=== PATIENT | female | born 1960 | race Caucasian/White ===

== ENCOUNTER 2017-10-24 14:03 | Observation (INO) | payer BC ==
[~2017-10-24] VITALS: Ht 167.6 cm; Wt 81.8 kg
[2017-10-24 14:17] VITALS: BP 183/90; PULSE 100; RESP 22; TEMP 97.7; O2SAT 97
[2017-10-24] MEDS ORDERED: KETOROLAC TROMETHAMINE 60 MG/2 ML (IM) VIAL IM ONE (14:45)
--- NOTE | 2017-10-24 14:48 | PD ---
HPI Chief Complaint: Injury Time Seen by Provider: 14:43 Travel History International Travel<30 days: No Contact w/Intl Traveler<30days: No Traveled to known affect area: No History of Present Illness HPI This is a 57-year-old female who presents for evaluation of a proximal humerus fracture. She reports that 2 days ago she tripped and fell in [place] and landed on her right shoulder. She was seen at [facility] emergency room in [place] where she was diagnosed with a proximal right humerus fracture as well as a right knee effusion. She was placed in a swath and the knee immobilizer. She was given a prescription for Percocet and Zofran. She was told to follow-up with an orthopedist [place] the [place] because she lives in [facility]. She called her primary care physician today to obtain a referral however her primary care physician reportedly told her that she is going out of town and could not write her a referral and told her to go to the emergency room. She denies any new injury. She reports pain in her right shoulder, throbbing, unrelieved with Percocet. No other complaints. PFSH Past Medical History ?: Not Social History Alcohol Use: Yes Tobacco Use: No Allergies-Medications (Allergen,Severity, Reaction): Coded Allergies: Penicillins (Verified Allergy, Unknown, 10/24/17) Review of Systems Except as stated in HPI: all other systems reviewed are Neg Physical Exam Narrative GENERAL: Well-developed well-nourished female who appears anxious and uncomfortable, she is crying during the examination. SKIN: Warm and dry. HEAD: Atraumatic. Normocephalic. EYES: Pupils equal and round. No scleral icterus. No injection or drainage. ENT: No nasal bleeding or discharge. Mucous membranes pink and moist. NECK: Trachea midline. No JVD. CARDIOVASCULAR: Regular rate and rhythm. No murmur appreciated. RESPIRATORY: No accessory muscle use. Clear to auscultation. Breath sounds equal bilaterally. GASTROINTESTINAL: Abdomen soft, non-tender, nondistended. Hepatic and splenic margins not palpable. MUSCULOSKELETAL: Right knee immobilizer is in place. Right arm swath is in place with the arm internally rotated. There is tenderness to palpation to the right shoulder joint. Range of motion examination is deferred. 2+ radial pulse. She is able to wiggle her fingers on the right hand. NEUROLOGICAL: Awake and alert. No obvious cranial nerve deficits. Motor grossly within normal limits. Normal speech. Data Data Last Documented VS Vital Signs Date Time Temp Pulse Resp B/P (MAP) Pulse Ox O2 Delivery O2 Flow Rate FiO2 10/24/17 14:17 97.7 100 22 183/90 (121) 97 Orders Orders Ketorolac Inj (Toradol Inj) (10/24/17 14:45) Shoulder, Limited(2vws) (10/24/17 ) Morphine Inj (Morphine Inj) (10/24/17 15:45) Ondansetron Inj (Zofran Inj) (10/24/17 15:45) Hydromorphone Pf Inj (Dilaudid Pf Inj) (10/24/17 16:00) Complete Blood Count With Diff (10/24/17 16:25) Basic Metabolic Panel (Bmp) (10/24/17 16:25) Act Partial Throm Time (Ptt) (10/24/17 16:25) Prothrombin Time / Inr (Pt) (10/24/17 16:25) MDM Medical Decision Making Medical Screen Exam Complete: Yes Emergency Medical Condition: Yes Medical Record Reviewed: Yes Differential Diagnosis Proximal humeral fracture, dislocation, rotator cuff tear, acromioclavicular separation Narrative Course X-ray imaging of the right shoulder obtained here reveals CONCLUSION: Comminuted and displaced fracture of the proximal humerus. The patient remained in significant pain during her ED course. She was given a dose of Toradol with minimal pain relief. She was given a dose of Dilaudid with some pain relief but still significant pain. She reports that the Percocet that she was taking at home provided minimal relief. I discussed with the on-call orthopedist Dr. Arteaga. The patient will be admitted for pain control and orthopedic surgery will consult, likely plan for operative repair in the morning. Discussed with the patient who is agreeable. Diagnosis Primary Impression: Fracture of humerus, proximal, right, closed Admitting Information Admitting Physician Requests: Giovanny Villagomez Oct 24, 2017 14:48
[2017-10-24] MEDS ORDERED: MORPHINE SULFATE 8 MG/ML INJ IV PUSH ONE (15:45)
[2017-10-24] MEDS ORDERED: ONDANSETRON HCL 4 MG/2 ML VIAL IV PUSH ONE (15:45)
--- NOTE | 2017-10-24 15:58 | RADRPT ---
EXAM DATE/TIME: 10/24/2017 15:14 [facility] COMPARISON: No previous studies available for comparison. INDICATIONS : Right shoulder pain, fell today. MEDICAL HISTORY : None. SURGICAL HISTORY : None. ENCOUNTER: Initial ACUITY: 1 day PAIN SCORE: 10/10 LOCATION: Right shoulder FINDINGS: There is a comminuted fracture of the proximal humerus with oblique fracture through the proximal sha ft with one shaft width lateral displacement and an irregular nondisplaced fracture through the surgi yong neck. The humeral head remains in alignment with the glenoid on the lateral view. The visualize d right ribs are intact. A.c. joint is intact. CONCLUSION: Comminuted and displaced fracture of the proximal humerus. Fabricio Lyman MD on October 24, 2017 at 15:55 Board Certified Radiologist. This report was verified electronically.
[2017-10-24] MEDS ORDERED: HYDROmorphone HCL PF 0.5 MG/0.5 ML SYRINGE IV PUSH ONE (16:00)
[2017-10-24] MEDS ORDERED: ACETAMINOPHEN 325 MG TAB PO PRN ×2 (17:00)
[2017-10-24] MEDS ORDERED: BISACODYL 10 MG SUPP RECTAL PRN (17:00)
[2017-10-24] MEDS ORDERED: SENNOSIDES 8.6 MG TAB PO PRN (17:00)
[2017-10-24] MEDS ORDERED: ACETAMINOPHEN/HYDROcodone 325 MG/10 MG TAB PO PRN ×2 (17:00→17:45)
[2017-10-24] MEDS ORDERED: LACTULOSE SYRUP 20 GM/30 ML CUP PO PRN (17:00)
[2017-10-24] MEDS ORDERED: NALOXONE HCL 0.4 MG/ML AMP IV PUSH PRN (17:00)
[2017-10-24] MEDS ORDERED: PERC10TA27 PO (17:00)
[2017-10-24] MEDS ORDERED: ACETAMINOPHEN/HYDROcodone 325 MG/5 MG TAB PO PRN (17:00)
[2017-10-24] MEDS ORDERED: MAGNESIUM HYDROXIDE SUSP 30 ML CUP PO PRN (17:00)
[2017-10-24] MEDS ORDERED: HYDROmorphone HCL PF 1 MG/ML VIAL IV PUSH PRN (17:00)
--- NOTE | 2017-10-24 17:37 | HHI.HP ---
HPI Service [facility] Primary Care Physician No Primary Care Physician Admission Diagnosis Right humerus fracture Diagnoses: Chief Complaint: Right arm pain Travel History International Travel<30 Days: No Contact w/Intl Traveler <30 Da: No Traveled to Known Affected Are: No History of Present Illness This is a 57-year-old female who presents to the emergency department because of humeral fracture. Patient had a trip and fall in [place] and landed on her knee and right shoulder. She was evaluated at emergency room in [place]. Outside records from emergency room reviewed. Was found to have a proximal right humerus fracture and right knee effusion/contusion. She was placed in in a swath and knee immobilizer. She was also prescribed Percocet and Zofran and was advised to follow-up with orthopedic surgery. Today she contacted her primary care physician to obtain a referral but was advised to present to the emergency room. She reports of severe right shoulder throbbing pain unrelieved with Percocet. States IV Dilaudid help. She also reported numbness of the right fingers which improved after adjustment of the swath. Review of Systems Except as stated in HPI: all other systems reviewed are Neg Past Family Social History Past Medical History Denies CVA, CAD and bleeding disorder. Has ADD on Adderall Past Surgical History Left knee surgery, cholecystectomy Reported Medications Adderall Allergies: Coded Allergies: morphine (Verified Allergy, Severe, Itching, 10/24/17) Penicillins (Verified Allergy, Unknown, 10/24/17) Family History Denies history of CVA, CAD and bleeding conditions Social History Occasional alcohol use. Does not smoke Physical Exam Vital Signs Vital Signs Date Time Temp Pulse Resp B/P (MAP) Pulse Ox O2 Delivery O2 Flow Rate FiO2 10/24/17 17:09 20 10/24/17 14:17 97.7 100 22 183/90 (121) 97 Physical Exam GENERAL: This is a well-nourished, well-developed patient, in no apparent distress. SKIN: No rashes, ecchymoses or lesions. Cool and dry. HEAD: Atraumatic. Normocephalic. No temporal or scalp tenderness. EYES: Pupils equal round and reactive. Extraocular motions intact. No scleral icterus. No injection or drainage. ENT: Nose without bleeding, purulent drainage or septal hematoma. Throat without erythema, tonsillar hypertrophy or exudate. Uvula midline. Airway patent. NECK: Trachea midline. No JVD or lymphadenopathy. Supple, nontender, no meningeal signs. CARDIOVASCULAR: Regular rate and rhythm without gallops, or rubs. Systolic murmur which is chronic RESPIRATORY: Clear to auscultation. Breath sounds equal bilaterally. No wheezes , rales, or rhonchi. GASTROINTESTINAL: Abdomen soft, non-tender, nondistended. No guarding. MUSCULOSKELETAL: Extremities without clubbing, cyanosis, or edema. Right upper extremity in the swath. Right lower extremity in a CKS with swelling and abrasion right knee. Neurovascularly intact NEUROLOGICAL: Awake and alert. Cranial nerves II through XII intact. Motor and sensory grossly within normal limits. Five out of 5 muscle strength in all muscle groups. Normal speech. Imaging Last Impressions Shoulder X-Ray 10/24/17 0000 Signed Impressions: Service Date/Time: Tuesday, October 24, 2017 15:14 - CONCLUSION: Comminuted and displaced fracture of the proximal humerus. MD Liv Mojica VTE Risk Assessment Caprini VTE Risk Assessment: Mod/High Risk (score >= 2) Caprini Risk Assessment Model Point Value = 1 Point Value = 2 Point Value = 3 Point Value = 5 Age 41-60 Minor surgery BMI > 25 kg/m2 Swollen legs Varicose veins or History of unexplained or recurrent spontaneous Oral contraceptives or hormone replacement Sepsis (< 1 month) Serious lung disease, including pneumonia (< 1 month) Abnormal pulmonary function Acute myocardial infarction Congestive heart failure (< 1 month) History of inflammatory bowel disease Medical patient at bed rest Age 61-74 Arthroscopic surgery Major open surgery (> 45 min) Laparoscopic surgery (> 45 min) Malignancy Confined to bed (> 72 hours) Immobilizing plaster cast Central venous access Age >= 75 History of VTE Family history of VTE Factor V Leiden Prothrombin [id number] Lupus anticoagulant Anticardiolipin antibodies Elevated serum homocysteine Heparin-induced thrombocytopenia Other congenital or acquired thrombophilia Stroke (< 1 month) Elective arthroplasty Hip, pelvis, or leg fracture Acute spinal cord injury (< 1 month) Prophylaxis Regimen Total Risk Factor Score Risk Level Prophylaxis Regimen 0-1 Low Early ambulation 2 Moderate Order ONE of the following: *Sequential Compression Device (SCD) *Heparin 5000 units SQ BID 3-4 Higher Order ONE of the following medications: *Heparin 5000 units SQ TID *Enoxaparin/Lovenox 40 mg SQ daily (WT < 150 kg, CrCl > 30 mL/min) *Enoxaparin/Lovenox 30 mg SQ daily (WT < 150 kg, CrCl > 10-29 mL/min) *Enoxaparin/Lovenox 30 mg SQ BID (WT < 150 kg, CrCl > 30 mL/min) AND/OR *Sequential Compression Device (SCD) 5 or more Highest Order ONE of the following medications: *Heparin 5000 units SQ TID (Preferred with Epidurals) *Enoxaparin/Lovenox 40 mg SQ daily (WT < 150 kg, CrCl > 30 mL/min) *Enoxaparin/Lovenox 30 mg SQ daily (WT < 150 kg, CrCl > 10-29 mL/min) *Enoxaparin/Lovenox 30 mg SQ BID (WT < 150 kg, CrCl > 30 mL/min) AND *Sequential Compression Device (SCD) Assessment and Plan Problem List: (1) Fracture of humerus, proximal, right, closed ICD Code: S42.201A - Unspecified fracture of upper end of right humerus, initial encounter for closed fracture Status: Acute Assessment and Plan This is a 57-year-old female who presents to the emergency department because of humeral fracture s/p trip and fall Right humeral fracture. X-ray shows comminuted displaced humeral fracture images reviewed. Patient will be hospitalized for further evaluation and treatment orthopedic surgery has been consulted. N.p.o. post midnight. Continue elevation and swath. Monitor for neurovascular status. Pain management with Lortab and IV Dilaudid counseled regarding narcotics. Follow- up preop labs which have been ordered. ADD. Salazar Loera RN to verify dose DVT prophylaxis with SCD and early ambulation Pablo Arredondo MD Oct 24, 2017 17:37
[2017-10-24] MEDS ORDERED: NEXI40CA PO (17:52)
[2017-10-24] MEDS ORDERED: PILL SPLITTER OTHER PRN (18:00)
[2017-10-24 18:01] VITALS: O2SAT 97
[2017-10-24 20:13] VITALS: BP 147/74; PULSE 83; RESP 18; TEMP 98.1; O2SAT 97
[2017-10-24] MEDS: SODIUM CHLORIDE 0.9% FLUSH 10 ML FLUSH IV FLUSH SCH (21:00)
[2017-10-24] MEDS: DOCUSATE SODIUM 50 MG/SENNA 8.6 MG TAB PO SCH (21:30)
[2017-10-24] MEDS: ACETAMINOPHEN/HYDROcodone 325 MG/10 MG TAB PO PRN (22:54)
[2017-10-24 23:04] VITALS: BP 112/56; PULSE 103; RESP 18; O2SAT 97
[2017-10-25] MEDS: HYDROmorphone HCL PF 2 MG/ML VIAL IV PRN
[2017-10-25 03:59] VITALS: BP 126/62; PULSE 88; RESP 18; TEMP 98; O2SAT 97
[2017-10-25] MEDS: ACETAMINOPHEN/HYDROcodone 325 MG/10 MG TAB PO PRN ×4 (04:05→21:46)
[2017-10-25] MEDS ORDERED: GENTAMICIN SULFATE 80 MG/2 ML VIAL ONE (06:53)
[2017-10-25] MEDS ORDERED: SODIUM CHLOR 0.9% 250 ML INJ 250 ML ONE (06:53)
[2017-10-25] MEDS ORDERED: VANCOMYCIN HCL 1000 MG VIAL ONE ×2 (06:53→09:33)
[2017-10-25] MEDS ORDERED: ACETAMINOPHEN 1000 MG/100 ML 0 ML IV ONE (07:17)
[2017-10-25] MEDS ORDERED: ACETAMINOPHEN 1000 MG/100 ML 100 ML IV ONE ×2 (07:22→08:15)
[2017-10-25] MEDS ORDERED: FAMOTIDINE 20 MG/2 ML VIAL ONE (07:22)
[2017-10-25] MEDS ORDERED: APREPITANT 40 MG CAP ONE ×2 (07:22→07:35)
[2017-10-25] MEDS: ONDANSETRON HCL 4 MG/2 ML VIAL IVP PRN ×3 (07:27→21:43)
[2017-10-25] MEDS ORDERED: LACTATED RINGER'S 1000 ML IV PRN (07:30)
[2017-10-25] MEDS ORDERED: CHLORHEXIDINE GLUCONATE 2 % 1 PACK (2 CLOTHS) TOPICAL PRN (07:30)
[2017-10-25] MEDS ORDERED: SODIUM CHLORID 0.9% 500 ML IV PRN (07:30)
[2017-10-25] MEDS ORDERED: POVIDONE IODINE 5% (ANTISEPSIS KIT) 4 APPLICATIONS EACH NARE PRN (07:30)
[2017-10-25] MEDS ORDERED: DEXMEDETOMIDINE HCL 200 MCG/2 ML VIAL ONE (07:40)
[2017-10-25] MEDS ORDERED: APREPITANT 40 MG CAP PO ONE (08:15)
[2017-10-25] MEDS ORDERED: ONDANSETRON HCL 4 MG/2 ML VIAL IV PUSH ONE (08:15)
[2017-10-25] MEDS ORDERED: FAMOTIDINE 20 MG/2 ML VIAL IV ONE (08:15)
--- NOTE | 2017-10-25 08:25 | EKG ---
Date Performed: 10/25/2017 Time Performed: 07:39:29 PTAGE: 57 years EKG: Sinus rhythm NORMAL ECG NO PREVIOUS TRACING DOCTOR: Elder Multani Interpretating Date/Time 10/25/2017 08:24:49
[2017-10-25] MEDS ORDERED: PERC10TA27 PO (08:36)
--- NOTE | 2017-10-25 08:37 | HHI.FF ---
Face to Face Verification Diagnosis: (1) Fracture of humerus, proximal, right, closed Occupational Therapy Right UE Weight Bearing: Non WB Right UE Range of Motion: Pendular Nursing Dressing Changes: Daily dressing change, Xeroform, Coverderm/Primapore I have seen patient Nia Clark on 10/25/17. My clinical findings support the need for the requested home health care services because: Ltd mobility - disease progression I certify that my clinical findings support that this patient is homebound because: Post-op weakness Blake Swanson/Housing Installer LISA October 25, 2017 08:37
[2017-10-25] MEDS: DOCUSATE SODIUM 50 MG/SENNA 8.6 MG TAB PO SCH ×2 (09:00→21:51)
[2017-10-25] MEDS ORDERED: CLINDAMYCIN PHOS 600 MG/4 ML VIAL ONE (09:06)
--- NOTE | 2017-10-25 10:11 | PD.OP ---
cc: Dominic Dutta MD Operative Report Date of Surgery: October 25, 2017 Preoperative Diagnosis: Displaced right proximal humerus fracture Postoperative Diagnosis: Displaced right proximal humerus fracture, rotator cuff tear supraspinatus tendon Procedure: Open reduction to fixation right proximal humerus, open repair right rotator cuff tear Anesthesia: General Surgeon: Dominic Dutta Substation Design Draftsperson(s): HENRY Lizarraga PA-C The surgical procedure was assisted by my physician assistant guest services manager. My P.A. presence was necessary throughout this case for the manipulation and positioning of the surgical extremity. My P.A. was assisting me throughout the duration of this procedure. The skill set of a physician assistant guest services manager was medically necessary to complete this procedure. During the surgical case the laboratory technology teacher was working at the back table and the physician assistant guest services manager was directly assisting me. Operation and Findings: Implants used: Synthes Plan of activity: Sling and swath, Details of procedure: Patient was seen and evaluated preoperatively. Patient was found to have a displaced proximal humerus fracture. The risks and benefits of surgical and nonsurgical options were discussed in detail and informed consent was obtained for surgery. Patient was brought to the operating room and placed on or table. IV sedation and GETA were administered by anesthesiologist. Antibiotics were given prior to incision. Operative arm and shoulder were prepped with alcohol followed by Hibiclens and draped usual sterile fashion. Timeout procedure was performed. Procedure began with a 5 inch incision over the anterior shoulder. Cephalic vein was identified. A deltopectoral approach was utilized. The fracture was now visualized. Soft tissue was retracted. At this point there was noted to be a 1 cm x 1 cm rotator cuff tear of the supraspinatus tendon. Attention was turned towards rotator cuff repair. A #5 FiberWire suture was placed into the rotator rotator cuff. A [id number] repair was completed. The tear was completely closable. Next attention was turned to open reduction to fixation of the fracture. Attention was now turned to reduction. Gentle traction was applied. The humeral shaft was reduced to the humeral head. There was comminution of the metaphyseal region. Fracture was manipulated to achieve excellent reduction. Multiplanar fluoroscopy confirmed well aligned fracture. Multiple K wires were used to hold provisional fixation. A Synthes proximal humerus plate was selected. Plate was provisionally held in place K wires. 3.5 cortical screws were used to compress plate to bone. Fluoroscopy confirmed appropriate plate placement and fracture reduction. Multiple locking screws were now placed in the humeral head. Screws were predrilled and premeasured for appropriate length. Care was taken not to penetrate the articular surface. Additional screws were placed in the humeral shaft. The FiberWire suture was passed through the holes of the plate and sutured to the plate for additional stability. Final fluoroscopy revealed well aligned fracture with well-placed hardware. Wound was thoroughly irrigated. Fascia was closed with #1 Vicryl, subcutaneous tissues closed with 3-0 Vicryl, and skin was closed with win. Sterile dressings were applied. Patient was placed into a sling. Patient was awakened and transferred to recovery in stable condition. Needle and sponge counts were correct. Dominic Dutta MD October 25, 2017 10:11
[2017-10-25] MEDS ORDERED: diphenhydrAMINE HCL 25 MG CAP PO PRN (10:15)
[2017-10-25] MEDS ORDERED: ceFAZolin 2 GM PREMIX 50 ML IV SCH (10:15)
[2017-10-25] MEDS ORDERED: DO NOT ADM ANY ANTICOAGULANT DRUGS PRN (10:38)
[2017-10-25] MEDS ORDERED: MIDAZOLAM HCL 2 MG/2 ML VIAL ONE (10:44)
[2017-10-25] MEDS ORDERED: *HYDROmorphone PF 0.5 MG/0.5 ML PERIprocedure ONLY ONE ×3 (10:45→11:22)
--- NOTE | 2017-10-25 10:54 | MB ---
cc: Dominic Alvarez MD DATE: 10/25/2017 REASON FOR CONSULTATION: Right proximal humerus fracture CONSULTING PHYSICIAN: Dr. Arredondo. HISTORY OF PRESENT ILLNESS: Nia is a 57-year-old female who had a fall in [place] approximately 3 days ago. She initially went to [facility] emergency room. She was found to have a right proximal humerus fracture and a right knee contusion. She was placed into a sling and swath. She was instructed to follow up with Orthopedics when she returns home to [facility]. She presented to the emergency room complaining of increased pain. She is feeling the fracture move around in her shoulder. The pain is worsening. She complains mostly of right shoulder pain. She does have some right knee pain. She has been able to put weight bear on her right leg. PAST MEDICAL HISTORY: None. PAST SURGICAL HISTORY: 1. Left knee arthroscopy. 2. Cholecystectomy. ALLERGIES: 1. PENICILLIN. 2. MORPHINE. MEDICATIONS: Adderall. SOCIAL HISTORY: The patient denies tobacco or drug use. She does drink alcohol socially. FAMILY HISTORY: Noncontributory. She denies any familial medical problems. REVIEW OF SYSTEMS: The patient denies headache, visual changes, neck pain, chest pain, shortness of breath, abdominal pain, nausea, vomiting, recent weight loss, fevers or chills, numbness or tingling of the extremities or recent weight loss. She complains of right shoulder pain. She also complains of right knee pain and swelling. IMAGING STUDIES: X-rays of her right shoulder were reviewed. X-rays reveal a mildly displaced, mildly comminuted right proximal humerus fracture. PHYSICAL EXAMINATION: GENERAL: The patient is a well-developed, well-nourished, 57-year-old female. She is awake and alert. She appears well-developed and well-nourished. She is moderately overweight. VITAL SIGNS: Temperature 98.0, pulse 88, respirations 18, blood pressure 126/62, sats 97% on room air. HEENT: Head: The patient is normocephalic. Pupils are equal. NECK: Soft and nontender. The trachea is in the midline. ABDOMEN: Soft, nontender, and nondistended. EXTREMITIES: Examination of right arm reveals mild swelling and bruising around her shoulder. She has pain with any shoulder motion. She has no tenderness around her elbow, wrist or fingers. Radial pulse is palpable. She has intact sensation in all fingers. Examination of left arm reveals no pain with shoulder, elbow and wrist motion. She has intact sensation in all fingers. Skin is intact. Radial pulse is palpable. Examination of left leg reveals no pain with hip, knee or ankle motion. Skin is intact. Dorsalis pedis pulse is palpable. Examination of right leg reveals no tenderness around her hip or ankle. She has some bruising over her anterior knee. She is tender to palpation over the bruised area. She has minimal pain with gentle knee range of motion. Sensation is intact to the right foot. IMPRESSION: 1. Right knee contusion. 2. Displaced right proximal humerus fracture. PLAN: Treatment options were discussed with the patient. I discussed both surgical and nonsurgical options. I discussed the risks and benefits of surgery and nonsurgical options in depth with the patient. After a detailed discussion of the risks and benefits of surgery and nonsurgical treatment, the patient wishes to proceed with surgery. The risks of surgery include bleeding, infection, injuries to arteries, nerves or blood vessels; nonunion, malunion, painful hardware as well as medical complications including blood clot, stroke, heart attack and . All questions were answered. I will plan on surgery today. A mid-level provider in my office, nurse practitioner or PA, may see this patient on a follow-up basis and continue to implement the objective of this plan including: Starting or adjusting medications, injections of muscle, tendon, bursa or joints, cast application, orthotic or brace application, physical therapy, further radiographic studies including x-ray, MRI, CT, ultrasounds or bone scan, vascular studies, neurologic studies, or other specialist consultations, and proceeding with surgical management as appropriate. MD ALICIA Dyer/LULU , 10:15 AM , 10:53 AM
[2017-10-25] MEDS ORDERED: HYDROmorphone HCL PF 0.5 MG/0.5 ML SYRINGE ONE (10:58)
[2017-10-25] MEDS ORDERED: BUPIVACAINE HCL PF 0.5% 30 ML VIAL ONE (11:16)
[2017-10-25] MEDS ORDERED: LIDOCAINE HCL 1% 20 ML VIAL ONE (11:17)
[2017-10-25] MEDS ORDERED: LACTATED RINGER'S 1000 ML INJ 1,000 ML IV ONE (12:00)
[2017-10-25] MEDS ORDERED: GLYCOPYRROLATE 1 MG/5 ML SYRINGE IV PUSH ONE (12:00)
[2017-10-25] MEDS ORDERED: ERGOCALCIFEROL (VIT D2) 50,000 UNIT CAP PO SCH (12:00)
[2017-10-25] MEDS ORDERED: PROPOFOL 200 MG/20 ML AMP IV ONE (12:00)
[2017-10-25] MEDS ORDERED: LIDOCAINE HCL 1% PF 5 ML SYRINGE OTHER ONE (12:00)
[2017-10-25] MEDS ORDERED: SODIUM CHLOR 0.9% 250 ML INJ 500 ML IV ONE (12:00)
[2017-10-25] MEDS ORDERED: DEXAMETHASONE SOD PHOS 4 MG/ML VIAL IV ONE (12:00)
[2017-10-25] MEDS ORDERED: PHENYLEPH/NS 1000 MCG/10 ML SYR IV ONE (12:00)
[2017-10-25] MEDS ORDERED: NEOSTIGMINE 5 MG/5 ML SYRINGE IV PUSH ONE (12:00)
[2017-10-25] MEDS ORDERED: ROCURONIUM INJ 50 MG/5 ML SYRINGE IV PUSH ONE (12:00)
[2017-10-25] MEDS: SODIUM CHLORIDE 0.9% FLUSH 10 ML FLUSH IV FLUSH SCH ×2 (13:10→21:51)
[2017-10-25] MEDS: CALCIUM/VITAMIN D 250 MG/125 U TAB PO SCH ×2 (13:10→17:29)
[2017-10-25 13:34] LABS: AUTOMATED NEUTROPHIL # 7.8 TH/MM3 (1.8-7.7); BASOPHIL % 0.6 % (0.0-2.0); EOSINOPHIL % 0.2 % (0.0-4.0); HEMATOCRIT 31.8 % (35.0-46.0); HEMOGLOBIN 10.5 GM/DL (11.6-15.3); LYMPH % 6.2 % (9.0-44.0); LYMPHOCYTE # 0.5 TH/MM3 (1.0-4.8); MEAN CELL VOLUME 89.4 FL (80.0-100.0); MEAN CORPUSCULAR HEMOGLOBIN 29.6 PG (27.0-34.0); MEAN CORPUSCULAR HGB CONC 33.1 % (32.0-36.0); MEAN PLATELET VOLUME 9.1 FL (7.0-11.0); MONO % 2.1 % (0.0-8.0); MONOCYTE # 0.2 TH/MM3 (0-0.9); NEUT % 90.9 % (16.0-70.0); PLATELET COUNT 205 TH/MM3 (150-450); RED BLOOD COUNT 3.56 MIL/MM3 (4.00-5.30); RED CELL DISTRIBUTION WIDTH 14.1 % (11.6-17.2); WHITE BLOOD COUNT 8.6 TH/MM3 (4.0-11.0)
[2017-10-25 13:56] LABS: BICARBONATE 29.4 MEQ/L (21.0-32.0); CALCIUM 8.3 MG/DL (8.5-10.1); CREATININE 0.68 MG/DL (0.50-1.00)
--- NOTE | 2017-10-25 15:01 | RADRPT ---
EXAM DATE/TIME: 10/25/2017 09:57 [facility] COMPARISON: No previous studies available for comparison. INDICATIONS : ORIF right humerus fracture. MEDICAL HISTORY : Unobtainable. SURGICAL HISTORY : Unobtainable. ENCOUNTER: Subsequent ACUITY: 2 days PAIN SCORE: Non-responsive. LOCATION: Right humerus FINDINGS: 6 images are recorded digitally in the operating room using C-arm during placement of lateral plate a nd screws in the proximal humerus. CONCLUSION: Intraoperative images. Fabricio Lyman MD on October 25, 2017 at 14:58 Board Certified Radiologist. This report was verified electronically.
--- NOTE | 2017-10-25 15:04 | HHI.PR ---
Subjective Remarks Follow up for humeral fracture. The patient is seen s/p surgery, still drowsy. PHOTOGRAPHER LITHOGRAPHIC at bedside. The patient has no specific medical complaints. Denies any fevers/chills, chest pain, palpitations, shortness of breath, or abdominal complaints. She reports past medical history of heart murmur and ADHD. Objective Vitals Vital Signs Date Time Temp Pulse Resp B/P (MAP) Pulse Ox O2 Delivery O2 Flow Rate FiO2 10/25/17 14:28 22 10/25/17 12:55 98.0 81 24 133/70 (91) 100 Nasal Cannula 2 10/25/17 12:30 72 14 130/64 (86) 99 Nasal Cannula 2 10/25/17 12:00 75 24 128/74 (92) 100 Nasal Cannula 2 10/25/17 11:45 71 23 173/77 (109) 100 Nasal Cannula 2 10/25/17 11:30 77 14 160/77 (104) 100 Nasal Cannula 2 10/25/17 11:15 81 14 171/87 (115) 98 Nasal Cannula 2 10/25/17 11:00 84 14 164/83 (110) 100 Nasal Cannula 2 10/25/17 10:45 84 20 153/77 (102) 100 Nasal Cannula 2 10/25/17 10:37 98.0 85 16 144/86 (105) 100 Nasal Cannula 2 10/25/17 03:59 98.0 88 18 126/62 (83) 97 10/25/17 00:30 16 10/24/17 23:04 103 18 112/56 (74) 97 10/24/17 20:27 18 10/24/17 20:13 98.1 83 18 147/74 (98) 97 10/24/17 18:01 97 21 10/24/17 17:09 20 I/O 10/24/17 10/24/17 10/24/17 10/25/17 10/25/17 10/25/17 07:00 15:00 23:00 07:00 15:00 23:00 Intake Total 1100 ml Output Total 75 ml Balance 1025 ml Intake Oral 100 ml Other 1000 ml Output Estimated Blood Loss 75 ml # Voids 0 Result Diagram: 10/25/17 1315 10/25/17 1315 Imaging Last Impressions Shoulder X-Ray 10/24/17 0000 Signed Impressions: Service Date/Time: Tuesday, October 24, 2017 15:14 - CONCLUSION: Comminuted and displaced fracture of the proximal humerus. Fabricio Lyman MD Objective Remarks GENERAL: Well-nourished, well-developed middle aged female patient in [facility]. SKIN: Warm and dry. No rash. HEENT: Normocephalic. Atraumatic. Pupils equal and round. Mucous membranes pink and moist. CARDIOVASCULAR: Regular rate and rhythm. 2/6 systolic murmur noted. RESPIRATORY: No accessory muscle use. Clear to auscultation. Breath sounds equal bilaterally. GASTROINTESTINAL: Abdomen soft, non-tender, nondistended. Normoactive bowel sounds x4. MUSCULOSKELETAL: RUE in splint and sling. RLE in knee immobilizer with anterior knee edema and abrasion. NEUROLOGICAL: Awake and alert. No obvious cranial nerve deficits. Motor grossly within normal limits. Normal speech. PSYCHIATRIC: Appropriate mood and affect; insight and judgment normal. Procedures 10/25/17 - Dr. Alvarez - Open reduction to fixation right proximal humerus, open repair right rotator cuff tear Medications and IVs Current Medications Medications (Trade) Dose Ordered Sig/Kim Route Start Time Stop Time Status Last Admin (NS Flush) 2 ml UNSCH PRN IV FLUSH 10/24/17 17:00 (NS Flush) 2 ml BID IV FLUSH 10/24/17 21:00 10/25/17 13:10 (Tylenol) 650 mg Q4H PRN PO 10/24/17 17:00 (Zofran Inj) 4 mg Q6H PRN IVP 10/24/17 17:00 10/25/17 07:27 (Tylenol) 650 mg Q6H PRN PO 10/24/17 17:00 (Narcan Inj) 0.4 mg UNSCH PRN IV PUSH 10/24/17 17:00 (Matilde-Colace) 1 tab BID PO 10/24/17 21:00 10/25/17 09:00 (Milk Of Magnesia Liq) 30 ml Q12H PRN PO 10/24/17 17:00 (Senokot) 17.2 mg Q12H PRN PO 10/24/17 17:00 (Dulcolax Supp) 10 mg DAILY PRN RECTAL 10/24/17 17:00 (Lactulose Liq) 30 ml DAILY PRN PO 10/24/17 17:00 ([place] 10-325 Mg) 1.5 tab Q4H PRN PO 10/24/17 21:00 10/25/17 13:14 ([place] 10-325 Mg) 1 tab Q4H PRN PO 10/24/17 17:45 10/24/17 19:27 (Pill Splitter) 1 ea UNSCH PRN OTHER 10/24/17 18:00 (Dilaudid Pf Inj) 0.5 mg Q3H PRN IV 10/24/17 18:00 10/25/17 00:00 Lactated Ringer's 1,000 ml @ 30 mls/hr Q24H PRN IV 10/25/17 07:30 10/28/17 07:29 Sodium Chloride 500 ml @ 30 mls/hr [id number] PRN IV 10/25/17 07:30 10/28/17 07:29 (Betadine 5% Antisepsis Kit) 1 applic PRESCHOOL ASSISTANT TEACHER PRN EACH NARE 10/25/17 07:30 10/28/17 07:29 (Chlorhexidine 2% Cloth) 3 pack PRESCHOOL ASSISTANT TEACHER PRN TOPICAL 10/25/17 07:30 10/28/17 07:29 ([place] 10-325 Mg) 1 tab Q3H PRN PO 10/25/17 10:15 (Oscal-D 250-125) 250 mg TID PO 10/25/17 13:00 10/25/17 13:10 (Benadryl) 25 mg Q6H PRN PO 10/25/17 10:15 (Drisdol) 50,000 units Q7D PO 10/25/17 12:00 10/25/17 13:10 (Vitamin D3) 1,000 units DAILY PO 10/26/17 09:00 ([facility] [place] [facility]) ALL NURSING DEPARTME... UNSCH PRN .XX 10/25/17 10:38 10/26/17 10:37 Clindamycin/ Sodium Chloride 50 ml @ 208 mls/hr Q8H IV 10/25/17 17:00 10/26/17 09:15 A/P Problem List: (1) Fracture of humerus, proximal, right, closed ICD Code: S42.201A - Unspecified fracture of upper end of right humerus, initial encounter for closed fracture Status: Acute Assessment and Plan 57-year-old female with history of ADHD and heart murmur presents s/p fall with right humeral fracture diagnosed at [facility], recommended outpatient f/up with ortho, however patient unable to establish follow up and presented to the ER with increasing pain Right Humeral Fracture: s/p mechanical fall. -Right shoulder xray reviewed, shows comminuted displaced humeral fracture -Ortho consulted -S/p Open reduction to fixation right proximal humerus, open repair right rotator cuff tear on 10/[address] Alvarez -Consult PT/OT -[place] prn pain, IV Dilaudid prn breakthrough pain Elevated Blood Glucose: no hx of diabetes. BH 140 upon arrival, possibly stress reaction to fracture/pain. -check HgbA1c -repeat BMP in am Normocytic Anemia: Hgb 10.5, no previously labs to compare. -repeat CBC in am -check iron studies/ferritin/folate/B12 -outpatient f/up DVT Prophylaxis: teds/SCDs to LLE Discharge Planning Discharge pending PT/OT evaluations and clearance by orthopedics. Barbie Mo PA-C October 25, 2017 15:04
[2017-10-25 15:53] VITALS: BP 114/65; PULSE 67; RESP 18; TEMP 97.5; O2SAT 95
[2017-10-25 15:55] VITALS: O2SAT 92
[2017-10-25 16:30] LABS: HEMOGLOBIN A1C 5.8 % (4.3-6.0)
[2017-10-25] MEDS: CLINDAMYCIN 600 MG/NS PREMIX 50 ML IV SCH (17:29)
[2017-10-25 20:00] VITALS: BP 110/59; PULSE 84; RESP 20; TEMP 98.5; O2SAT 96
[2017-10-25 20:08] VITALS: PULSE 81
[2017-10-25 23:57] VITALS: PULSE 81
[2017-10-26] VITALS (7 sets, daily range): BP systolic 110–135; BP diastolic 50–64; PULSE 70–91; RESP 16–20; TEMP 97.4–99.4; O2SAT 94–99
[2017-10-26] MEDS: CLINDAMYCIN 600 MG/NS PREMIX 50 ML IV SCH ×2 (01:11→08:49)
[2017-10-26] MEDS: SODIUM CHLORIDE 0.9% FLUSH 10 ML FLUSH IV FLUSH SCH ×2 (01:11→19:54)
[2017-10-26] MEDS: ACETAMINOPHEN/HYDROcodone 325 MG/10 MG TAB PO PRN ×7 (02:03→23:54)
[2017-10-26] MEDS: HYDROmorphone HCL PF 2 MG/ML VIAL IV PRN ×7 (05:52→22:25)
[2017-10-26] MEDS: KETOROLAC TROMETHAMINE 30 MG/ML (IVP) VIAL IV PUSH SCH ×2 (06:26→13:11)
--- NOTE | 2017-10-26 06:57 | PD.ORT.PN ---
Subjective Subjective Remarks POD 1 s/p ORIF right proximal humerus patient in significant pain over last couple hours. states that nerve block is wearing off and pain has gotten extreme Objective Vitals Vital Signs Date Time Temp Pulse Resp B/P (MAP) Pulse Ox O2 Delivery O2 Flow Rate FiO2 10/26/17 04:00 98.8 91 20 124/58 (80) 96 10/26/17 00:00 99.4 85 20 110/50 (70) 94 10/25/17 23:57 81 10/25/17 20:08 81 10/25/17 20:00 98.5 84 20 110/59 (76) 96 10/25/17 18:31 20 10/25/17 15:55 92 21 10/25/17 15:53 97.5 67 18 114/65 (81) 95 10/25/17 12:55 98.0 81 24 133/70 (91) 100 Nasal Cannula 2 10/25/17 12:30 72 14 130/64 (86) 99 Nasal Cannula 2 10/25/17 12:00 75 24 128/74 (92) 100 Nasal Cannula 2 10/25/17 11:45 71 23 173/77 (109) 100 Nasal Cannula 2 10/25/17 11:30 77 14 160/77 (104) 100 Nasal Cannula 2 10/25/17 11:15 81 14 171/87 (115) 98 Nasal Cannula 2 10/25/17 11:00 84 14 164/83 (110) 100 Nasal Cannula 2 10/25/17 10:45 84 20 153/77 (102) 100 Nasal Cannula 2 10/25/17 10:37 98.0 85 16 144/86 (105) 100 Nasal Cannula 2 I/O 10/25/17 10/25/17 10/25/17 10/26/17 10/26/17 10/26/17 07:00 15:00 23:00 07:00 15:00 23:00 Intake Total 1100 ml 320 ml Output Total 75 ml Balance 1025 ml 320 ml Intake Oral 100 ml 320 ml Other 1000 ml Output Estimated Blood Loss 75 ml # Voids 0 3 # Bowel Movements 0 Result Diagram: 10/25/17 1315 10/25/17 1315 Other Results Laboratory Tests Test 10/25/17 13:15 Prothromb Time International Ratio 1.0 RATIO Prothrombin Time 10.0 SEC (9.8-11.6) Objective Remarks RUE: dressing removed. incision clean and dry. mild bloody drainage. arm is soft. full sensation to median/ulnar nerve distribution. full movement of fingers and wrist with minimal discomfort Assessment & Plan Assessment and Plan 1) Right Proximal Humerus Fx s/p ORIF - POD 1 -NWB -braeden wrap and bandages removed at bedside. replaced with primapore -ice -toradol 30mg IV 1x -pain control today -plan for Dc home tomorrow if pain controlled -f/u with Antonio or PA in 2 weeks Blake Swanson/Stable Helper PA October 26, 2017 06:57
[2017-10-26] MEDS: CHOLECALCIFEROL (VIT D3) 1000 UNIT TAB PO SCH (08:48)
[2017-10-26] MEDS: DOCUSATE SODIUM 50 MG/SENNA 8.6 MG TAB PO SCH ×2 (08:48→19:49)
[2017-10-26] MEDS: CALCIUM/VITAMIN D 250 MG/125 U TAB PO SCH ×3 (08:48→18:36)
[2017-10-26 11:01] LABS: AUTOMATED NEUTROPHIL # 4.4 TH/MM3 (1.8-7.7); BASOPHIL # 0.1 TH/MM3 (0-0.2); BASOPHIL % 0.8 % (0.0-2.0); EOSINOPHIL # 0.1 TH/MM3 (0-0.4); EOSINOPHIL % 1.4 % (0.0-4.0); HEMATOCRIT 26.7 % (35.0-46.0); LYMPH % 33.7 % (9.0-44.0); LYMPHOCYTE # 2.6 TH/MM3 (1.0-4.8); MEAN CELL VOLUME 89.3 FL (80.0-100.0); MEAN CORPUSCULAR HGB CONC 33.6 % (32.0-36.0); MEAN PLATELET VOLUME 9.2 FL (7.0-11.0); MONO % 7.9 % (0.0-8.0); MONOCYTE # 0.6 TH/MM3 (0-0.9); NEUT % 56.2 % (16.0-70.0); PLATELET COUNT 228 TH/MM3 (150-450); RED BLOOD COUNT 2.99 MIL/MM3 (4.00-5.30); RED CELL DISTRIBUTION WIDTH 13.6 % (11.6-17.2); WHITE BLOOD COUNT 7.8 TH/MM3 (4.0-11.0)
[2017-10-26] MEDS: ONDANSETRON HCL 4 MG/2 ML VIAL IVP PRN ×2 (11:31→18:37)
[2017-10-26 11:41] LABS: BICARBONATE 29.8 MEQ/L (21.0-32.0); BLOOD UREA NITROGEN 16 MG/DL (7-18); CALCIUM 8.5 MG/DL (8.5-10.1); CHLORIDE 104 MEQ/L (98-107); GLOMERULAR FILTRATION RATE 74 ML/MIN (>89); GLUCOSE,RANDOM 111 MG/DL (74-106); SODIUM (NA) 139 MEQ/L (136-145)
[2017-10-26 12:09] LABS: % SATURATION IRON PROFILE 13.9 % (20-50); FERRITIN 104 NG/ML (8-252); FOLATE 9.3 NG/ML (3.1-17.5); IRON (FE) 42 MCG/DL (50-170); TOTAL IRON BINDING CAPACITY 302 MCG/DL (250-450)
--- NOTE | 2017-10-26 15:02 | HHI.PR ---
Subjective Remarks Follow up Humeral fracture. Patient states she is in a lot of pain since the nerve block wore off. She is concerned about her right knee as well and states she can not go home till it is dealt with. Objective Vitals Vital Signs Date Time Temp Pulse Resp B/P (MAP) Pulse Ox O2 Delivery O2 Flow Rate FiO2 10/26/17 14:12 18 10/26/17 14:12 18 10/26/17 12:23 98.2 75 17 135/64 (87) 96 10/26/17 12:02 18 10/26/17 08:14 97.6 77 18 120/60 (80) 95 10/26/17 07:26 18 10/26/17 04:00 98.8 91 20 124/58 (80) 96 10/26/17 00:00 99.4 85 20 110/50 (70) 94 10/25/17 23:57 81 10/25/17 20:08 81 10/25/17 20:00 98.5 84 20 110/59 (76) 96 10/25/17 15:55 92 21 10/25/17 15:53 97.5 67 18 114/65 (81) 95 I/O 10/25/17 10/25/17 10/25/17 10/26/17 10/26/17 10/26/17 07:00 15:00 23:00 07:00 15:00 23:00 Intake Total 1100 ml 320 ml Output Total 75 ml Balance 1025 ml 320 ml Intake Oral 100 ml 320 ml Other 1000 ml Output Estimated Blood Loss 75 ml # Voids 0 3 # Bowel Movements 0 Result Diagram: 10/26/17 1007 10/26/17 1007 Objective Remarks SKIN: Warm and dry. Dressing to right upper extremity dry and intact NECK: Trachea midline. No JVD. CARDIOVASCULAR: Regular rate and rhythm. RESPIRATORY: No accessory muscle use. Clear to auscultation. Breath sounds equal bilaterally. GASTROINTESTINAL: Abdomen soft, non-tender, nondistended. Hepatic and splenic margins not palpable. MUSCULOSKELETAL; RUE in sling, mild edema. RLE in knee immobilizer with anterior knee edema and abrasion. Procedures 10/25/17 - Dr. Alvarez - Open reduction to fixation right proximal humerus, open repair right rotator cuff tear Urinary Catheter: No Vascular Central Line Catheter: No A/P Problem List: (1) Fracture of humerus, proximal, right, closed ICD Code: S42.201A - Unspecified fracture of upper end of right humerus, initial encounter for closed fracture Status: Acute Assessment and Plan 57-year-old female with history of ADHD and heart murmur presents s/p fall with right humeral fracture diagnosed at [facility], recommended outpatient f/up with ortho, however patient unable to establish follow up and presented to the ER with increasing pain Right Humeral Fracture: s/p mechanical fall. -Right shoulder xray reviewed, shows comminuted displaced humeral fracture, patient is now s/p repair,Open reduction to fixation right proximal humerus, open repair right rotator cuff tear on 10/[address] Alvarez -Ortho is following recommends NWB, ice and dressing changes -Cont PT/OT -[place] prn pain, IV Dilaudid prn breakthrough pain Elevated Blood Glucose: no hx of diabetes. BH 140 upon arrival, possibly stress reaction to fracture/pain. -HgbA1c 5.8 -Cont to monitor Normocytic Anemia: Hgb 10.5, no previously labs to compare. -Iron 42, start ferrous sulfate 325 daily -outpatient f/up Right knee pain -Knee xray ordered DVT Prophylaxis: teds/SCDs to LLE Discharge Planning Once cleared by ortho and medically stable Celia Perdomo October 26, 2017 15:02
--- NOTE | 2017-10-26 16:11 | RADRPT ---
EXAM DATE/TIME: 10/26/2017 16:01 [place] COMPARISON: SHOULDER RIGHT COMPLETE (>2VWS), October 25, 2017, 9:57. INDICATIONS : Right knee pain after fall. MEDICAL HISTORY : None. SURGICAL HISTORY : None. ENCOUNTER: Initial ACUITY: 4 - 6 days PAIN SCORE: 10/10 LOCATION: Right anterior knee. FINDINGS: The examination demonstrates moderate tricompartmental osteoarthritis. There is no acute fracture or destructive lesion. CONCLUSION: 1. Osteoarthritic changes. No acute abnormality identified. Clinton Beatty MD on October 26, 2017 at 16:09 Board Certified Radiologist. This report was verified electronically.
[2017-10-27] VITALS (7 sets, daily range): BP systolic 118–134; BP diastolic 57–70; PULSE 72–87; RESP 18–20; TEMP 97.2–98.4; O2SAT 94–97
[2017-10-27] MEDS: ACETAMINOPHEN/HYDROcodone 325 MG/10 MG TAB PO PRN ×3 (03:22→12:28)
[2017-10-27] MEDS: HYDROmorphone HCL PF 2 MG/ML VIAL IV PRN ×6 (05:54→22:13)
[2017-10-27] MEDS: CALCIUM/VITAMIN D 250 MG/125 U TAB PO SCH ×3 (08:30→18:41)
[2017-10-27] MEDS: CHOLECALCIFEROL (VIT D3) 1000 UNIT TAB PO SCH (08:30)
[2017-10-27] MEDS: FERROUS SULFATE 325 MG (65 MG ELEMENTAL IRON) TAB PO SCH (08:30)
[2017-10-27] MEDS: SODIUM CHLORIDE 0.9% FLUSH 10 ML FLUSH IV FLUSH SCH ×2 (08:37→19:54)
[2017-10-27] MEDS: DOCUSATE SODIUM 50 MG/SENNA 8.6 MG TAB PO SCH ×2 (08:38→19:55)
[2017-10-27] MEDS: ONDANSETRON HCL 4 MG/2 ML VIAL IVP PRN ×2 (09:14→22:18)
[2017-10-27] MEDS: SODIUM CHLORIDE 0.9% FLUSH 10 ML FLUSH IV FLUSH PRN (09:18)
--- NOTE | 2017-10-27 11:22 | PD.ORT.PN ---
Subjective Subjective Remarks Progressing well and less issues with pain today Objective Vitals Vital Signs Date Time Temp Pulse Resp B/P (MAP) Pulse Ox O2 Delivery O2 Flow Rate FiO2 10/27/17 07:37 97.2 86 18 134/69 (90) 95 10/27/17 04:00 98.4 80 20 132/70 (90) 94 10/27/17 00:30 72 10/27/17 00:00 98.0 82 20 124/57 (79) 96 10/26/17 20:00 73 10/26/17 19:51 97.4 70 16 111/56 (74) 96 10/26/17 17:30 18 10/26/17 16:24 18 10/26/17 16:18 97.9 73 18 130/60 (83) 99 10/26/17 14:12 18 10/26/17 12:23 98.2 75 17 135/64 (87) 96 I/O 10/26/17 10/26/17 10/26/17 10/27/17 10/27/17 10/27/17 07:00 15:00 23:00 07:00 15:00 23:00 Intake Total 320 ml 960 ml 220 ml Balance 320 ml 960 ml 220 ml Intake Oral 320 ml 960 ml 220 ml # Voids 3 1 2 # Bowel Movements 0 0 Result Diagram: 10/26/17 1007 10/26/17 1007 Objective Remarks Right upper extremity: Clean dry dressings intact. Sling and swath in place. Distally intact sensation of her radial ulnar and median nerve distributions with good capillary refill. full movement of fingers and wrist with minimal discomfort Assessment & Plan Assessment and Plan 1) Right Proximal Humerus Fx s/p ORIF - POD 2 -NWB -passive range of motion and pendulum swings Daily dressing changes with Xeroform -ice Contusion to right knee. Discontinue knee brace. May use knee brace if needed as needed. Plan for discharge to home with home health Follow-up Dr. Franco GONZALEZ in 2 weeks Jarrod Vasquez Jr. October 27, 2017 11:22
[2017-10-27 13:27] LABS: AUTOMATED NEUTROPHIL # 4.3 TH/MM3 (1.8-7.7); BASOPHIL % 0.5 % (0.0-2.0); EOSINOPHIL # 0.1 TH/MM3 (0-0.4); HEMATOCRIT 25.8 % (35.0-46.0); HEMOGLOBIN 8.6 GM/DL (11.6-15.3); LYMPH % 19.8 % (9.0-44.0); LYMPHOCYTE # 1.2 TH/MM3 (1.0-4.8); MEAN CELL VOLUME 88.2 FL (80.0-100.0); MEAN CORPUSCULAR HEMOGLOBIN 29.4 PG (27.0-34.0); MEAN CORPUSCULAR HGB CONC 33.3 % (32.0-36.0); MEAN PLATELET VOLUME 8.8 FL (7.0-11.0); MONO % 8.1 % (0.0-8.0); MONOCYTE # 0.5 TH/MM3 (0-0.9); NEUT % 69.6 % (16.0-70.0); PLATELET COUNT 223 TH/MM3 (150-450); RED BLOOD COUNT 2.92 MIL/MM3 (4.00-5.30); RED CELL DISTRIBUTION WIDTH 13.6 % (11.6-17.2); WHITE BLOOD COUNT 6.2 TH/MM3 (4.0-11.0)
--- NOTE | 2017-10-27 14:55 | HHI.PR ---
Subjective Remarks Patient says she is in pain, twisted her shoulder during PT. Agitated. Discussed increasing pain medication with her. Denies any chest pain. Objective Vitals Vital Signs Date Time Temp Pulse Resp B/P (MAP) Pulse Ox O2 Delivery O2 Flow Rate FiO2 10/27/17 11:46 98.0 81 18 127/66 (86) 95 10/27/17 07:37 97.2 86 18 134/69 (90) 95 10/27/17 04:00 98.4 80 20 132/70 (90) 94 10/27/17 00:30 72 10/27/17 00:00 98.0 82 20 124/57 (79) 96 10/26/17 20:00 73 10/26/17 19:51 97.4 70 16 111/56 (74) 96 10/26/17 17:30 18 10/26/17 16:24 18 10/26/17 16:18 97.9 73 18 130/60 (83) 99 I/O 10/26/17 10/26/17 10/26/17 10/27/17 10/27/17 10/27/17 07:00 15:00 23:00 07:00 15:00 23:00 Intake Total 320 ml 960 ml 220 ml 900 ml Balance 320 ml 960 ml 220 ml 900 ml Intake Oral 320 ml 960 ml 220 ml 900 ml # Voids 3 1 2 4 # Bowel Movements 0 0 0 Result Diagram: 10/27/17 1303 10/26/17 1007 Objective Remarks SKIN: Warm and dry. Dressing to right upper extremity dry and intact NECK: Trachea midline. No JVD. CARDIOVASCULAR: Regular rate and rhythm. RESPIRATORY: No accessory muscle use. Clear to auscultation. Breath sounds equal bilaterally. GASTROINTESTINAL: Abdomen soft, non-tender, nondistended. Hepatic and splenic margins not palpable. MUSCULOSKELETAL; RUE in sling, mild edema. RLE in knee immobilizer with anterior knee edema and abrasion. Procedures 10/25/17 - Dr. Alvarez - Open reduction to fixation right proximal humerus, open repair right rotator cuff tear A/P Problem List: (1) Fracture of humerus, proximal, right, closed ICD Code: S42.201A - Unspecified fracture of upper end of right humerus, initial encounter for closed fracture Status: Acute Assessment and Plan 57-year-old female with history of ADHD and heart murmur presents s/p fall with right humeral fracture diagnosed at [facility], recommended outpatient f/up with ortho, however patient unable to establish follow up and presented to the ER with increasing pain Right Humeral Fracture: s/p mechanical fall. -Right shoulder xray reviewed, shows comminuted displaced humeral fracture, patient is now s/p repair,Open reduction to fixation right proximal humerus, open repair right rotator cuff tear on 10/[address] Alvarez -Ortho has cleared patient for discharge once pain is controlled. -Cont PT/OT -10/27 changed pain medication to percocet. Cont IV Dilaudid prn breakthrough pain Elevated Blood Glucose, resolved -HgbA1c 5.8 -Cont to monitor Normocytic Anemia: Hgb 10.5, no previously labs to compare. -Iron 42, start ferrous sulfate 325 daily -outpatient f/up Right knee pain -Knee xray ordered, reviewed and shows osteoarthritic changes -Patient can follow up outpatient with ortho if pain worsens DVT Prophylaxis: teds/SCDs to LLE Discharge Planning Once cleared by ortho and medically stable Celia Perdomo October 27, 2017 14:55
[2017-10-27] MEDS: oxyCODONE/ACETAMINOPHEN 10 MG/325 MG TAB PO PRN ×2 (15:38→19:55)
[2017-10-28] VITALS: BP 134/60; PULSE 86; PULSE 88; RESP 20; TEMP 99.2; O2SAT 96
[2017-10-28] MEDS: oxyCODONE/ACETAMINOPHEN 10 MG/325 MG TAB PO PRN ×4 (01:35→13:54)
[2017-10-28] MEDS: HYDROmorphone HCL PF 2 MG/ML VIAL IV PRN ×2 (01:39→08:27)
[2017-10-28 04:00] VITALS: BP 123/62; PULSE 86; RESP 20; TEMP 98.9; O2SAT 92
--- NOTE | 2017-10-28 07:11 | PD.ORT.PN ---
Subjective Subjective Remarks Progressing well and less issues with pain today Objective Vitals Vital Signs Date Time Temp Pulse Resp B/P (MAP) Pulse Ox O2 Delivery O2 Flow Rate FiO2 10/28/17 04:00 98.9 86 20 123/62 (82) 92 10/28/17 00:00 99.2 86 20 134/60 (84) 96 10/28/17 00:00 88 10/27/17 20:00 97.5 87 20 118/65 (82) 97 10/27/17 20:00 87 10/27/17 15:52 98.1 86 18 131/65 (87) 95 10/27/17 11:46 98.0 81 18 127/66 (86) 95 10/27/17 07:37 97.2 86 18 134/69 (90) 95 I/O 10/27/17 10/27/17 10/27/17 10/28/17 10/28/17 10/28/17 07:00 15:00 23:00 07:00 15:00 23:00 Intake Total 220 ml 900 ml 1000 ml Balance 220 ml 900 ml 1000 ml Intake Oral 220 ml 900 ml 1000 ml # Voids 2 4 6 # Bowel Movements 0 0 0 Result Diagram: 10/27/17 1303 10/26/17 1007 Objective Remarks Right upper extremity: Clean dry dressings intact. Sling and swath in place. Distally intact sensation of her radial ulnar and median nerve distributions with good capillary refill. full movement of fingers and wrist with minimal discomfort Right lower extremity with swelling over patella. She is able to do a straight leg lift. She has tenderness with range of motion more tenderness with palpation. Distally she has intact sensation with good capillary refills with active dorsiflexion plantar flexion of foot Assessment & Plan Assessment and Plan 1) Right Proximal Humerus Fx s/p ORIF - POD 3 -NWB -passive range of motion and pendulum swings Daily dressing changes with Xeroform -ice Contusion to right knee. Discontinue knee brace. May use knee brace if needed as needed. Plan for discharge to home with home health today Follow-up Dr. Alvarez or LISA in 2 weeks Jarrod Vasquez Jr. October 28, 2017 07:11
[2017-10-28 07:14] LABS: AUTOMATED NEUTROPHIL # 3.6 TH/MM3 (1.8-7.7); BASOPHIL % 0.7 % (0.0-2.0); EOSINOPHIL # 0.3 TH/MM3 (0-0.4); EOSINOPHIL % 4.1 % (0.0-4.0); HEMATOCRIT 27.9 % (35.0-46.0); HEMOGLOBIN 9.5 GM/DL (11.6-15.3); LYMPHOCYTE # 1.5 TH/MM3 (1.0-4.8); MEAN CORPUSCULAR HEMOGLOBIN 30.1 PG (27.0-34.0); MEAN CORPUSCULAR HGB CONC 34.2 % (32.0-36.0); MEAN PLATELET VOLUME 9.9 FL (7.0-11.0); MONO % 12.8 % (0.0-8.0); MONOCYTE # 0.8 TH/MM3 (0-0.9); NEUT % 58.4 % (16.0-70.0); PLATELET COUNT 210 TH/MM3 (150-450); RED BLOOD COUNT 3.17 MIL/MM3 (4.00-5.30); RED CELL DISTRIBUTION WIDTH 13.9 % (11.6-17.2); WHITE BLOOD COUNT 6.1 TH/MM3 (4.0-11.0)
[2017-10-28 07:32] LABS: BICARBONATE 32.2 MEQ/L (21.0-32.0); CALCIUM 9.3 MG/DL (8.5-10.1); CREATININE 0.61 MG/DL (0.50-1.00)
[2017-10-28 07:36] VITALS: BP 135/70; PULSE 91; RESP 18; TEMP 98.1; O2SAT 95
[2017-10-28] MEDS: CALCIUM/VITAMIN D 250 MG/125 U TAB PO SCH ×2 (08:23→13:17)
[2017-10-28] MEDS: SODIUM CHLORIDE 0.9% FLUSH 10 ML FLUSH IV FLUSH PRN (08:23)
[2017-10-28] MEDS: FERROUS SULFATE 325 MG (65 MG ELEMENTAL IRON) TAB PO SCH (08:24)
[2017-10-28] MEDS: CHOLECALCIFEROL (VIT D3) 1000 UNIT TAB PO SCH (08:24)
[2017-10-28] MEDS: DOCUSATE SODIUM 50 MG/SENNA 8.6 MG TAB PO SCH (08:24)
[2017-10-28] MEDS: ONDANSETRON HCL 4 MG/2 ML VIAL IVP PRN ×2 (08:35→13:54)
[2017-10-28 08:43] VITALS: PULSE 86
[2017-10-28] MEDS ORDERED: CALC250 PO (09:18)
[2017-10-28] MEDS ORDERED: FERR325T20 PO (09:18)
[2017-10-28] MEDS ORDERED: CHOL1000 PO (09:18)
[2017-10-28] MEDS: SODIUM CHLORIDE 0.9% FLUSH 10 ML FLUSH IV FLUSH SCH (09:24)
[2017-10-28 12:00] VITALS: BP 123/60; PULSE 89; RESP 18; TEMP 98.3; O2SAT 97
--- NOTE | 2017-10-28 15:09 | HHI.PR ---
Subjective Remarks Patient seen this morning. Says that pain is under control. Denies any chest pain or shortness of breath. Objective Vital Signs Date Time Temp Pulse Resp B/P (MAP) Pulse Ox O2 Delivery O2 Flow Rate FiO2 10/28/17 12:00 98.3 89 18 123/60 (81) 97 10/28/17 08:43 86 10/28/17 07:36 98.1 91 18 135/70 (91) 95 10/28/17 04:00 98.9 86 20 123/62 (82) 92 10/28/17 00:00 99.2 86 20 134/60 (84) 96 10/28/17 00:00 88 10/27/17 20:00 97.5 87 20 118/65 (82) 97 10/27/17 20:00 87 10/27/17 15:52 98.1 86 18 131/65 (87) 95 I/O 10/27/17 10/27/17 10/27/17 10/28/17 10/28/17 10/28/17 07:00 15:00 23:00 07:00 15:00 23:00 Intake Total 220 ml 900 ml 1000 ml Balance 220 ml 900 ml 1000 ml Intake Oral 220 ml 900 ml 1000 ml # Voids 2 4 6 # Bowel Movements 0 0 0 Result Diagram: 10/28/1760210/28/17 06 Objective Remarks GENERAL: Patient sitting up in bed. Appears comfortable. SKIN: Warm and dry. HEAD: Normocephalic. EYES: No scleral icterus. No injection or drainage. NECK: Supple, trachea midline. No JVD or lymphadenopathy. CARDIOVASCULAR: Regular rate and rhythm without murmurs, gallops, or rubs. RESPIRATORY: Breath sounds equal bilaterally. No accessory muscle use. GASTROINTESTINAL: Abdomen soft, non-tender, nondistended. MUSCULOSKELETAL: No cyanosis, or edema. Right shoulder dressing intact.. Right knee with bruising, no broken skin. BACK: Nontender without obvious deformity. No CVA tenderness. A/P Assessment and Plan //Fracture of humerus, proximal, right, closed ICD Code: S42.201A - Unspecified fracture of upper end of right humerus, initial encounter for closed fracture Status: Acute Assessment and Plan 57-year-old female with history of ADHD and heart murmur presents s/p fall with right humeral fracture diagnosed at [facility], recommended outpatient f/up with ortho, however patient unable to establish follow up and presented to the ER with increasing pain //Right Humeral Fracture: s/p mechanical fall. -Right shoulder xray reviewed, shows comminuted displaced humeral fracture, patient is now s/p repair,Open reduction to fixation right proximal humerus, open repair right rotator cuff tear on 10/[address] Alvarez -Ortho has cleared patient for discharge once pain is controlled. -Cont PT/OT -10/27 changed pain medication to percocet. Cont IV Dilaudid prn breakthrough pain = Discharge home with oral pain meds. //Elevated Blood Glucose, resolved //Prediabetes. -HgbA1c 5.8 -Was likely secondary to stress. Patient is prediabetic and will need to follow with primary care. //Normocytic Anemia: Hgb 10.5, no previously labs to compare. -Iron 42, start ferrous sulfate 325 daily -outpatient f/up. Patient instructed to follow-up with primary care. Patient conveys understanding. //Right knee pain -Knee xray ordered, reviewed and shows osteoarthritic changes -Patient can follow up outpatient with ortho if pain worsens //DVT Prophylaxis: teds/SCDs to LLE Discharge Planning Discharge home. With home health. Suman Diaz MD October 28, 2017 15:08
--- NOTE | 2017-10-28 15:10 | HHI.DS ---
Discharge Summary Admission Date Oct 24, 2017 at 16:51 Discharge Date: October 28, 2017 Admitting Diagnosis Right humerus fracture (1) Fracture of humerus, proximal, right, closed ICD Code: S42.201A - Unspecified fracture of upper end of right humerus, initial encounter for closed fracture Status: Acute Procedures 10/25/17 - Dr. Alvarez - Open reduction to fixation right proximal humerus, open repair right rotator cuff tear Brief History - From Admission This is a 57-year-old female who presents to the emergency department because of humeral fracture. Patient had a trip and fall in [place] and landed on her knee and right shoulder. She was evaluated at emergency room in [place]. Outside records from emergency room reviewed. Was found to have a proximal right humerus fracture and right knee effusion/contusion. She was placed in in a swath and knee immobilizer. She was also prescribed Percocet and Zofran and was advised to follow-up with orthopedic surgery. Today she contacted her primary care physician to obtain a referral but was advised to present to the emergency room. She reports of severe right shoulder throbbing pain unrelieved with Percocet. States IV Dilaudid help. She also reported numbness of the right fingers which improved after adjustment of the swath. CBC/BMP: 10/28/17 0603 10/28/17 0603 Significant Findings Laboratory Tests Test 10/26/17 10:07 10/27/17 13:03 10/28/17 06:03 Red Blood Count 2.99 MIL/MM3 (4.00-5.30) 2.92 MIL/MM3 (4.00-5.30) 3.17 MIL/MM3 (4.00-5.30) Hemoglobin 9.0 GM/DL (11.6-15.3) 8.6 GM/DL (11.6-15.3) 9.5 GM/DL (11.6-15.3) Hematocrit 26.7 % (35.0-46.0) 25.8 % (35.0-46.0) 27.9 % (35.0-46.0) Random Glucose 111 MG/DL (74-106) Estimat Glomerular Filtration Rate 74 ML/MIN (>89) Iron Level 42 MCG/DL (50-170) Percent Iron Saturation 13.9 % (20-50) Monocytes (%) (Auto) 8.1 % (0.0-8.0) 12.8 % (0.0-8.0) Eosinophils (%) (Auto) 4.1 % (0.0-4.0) Platelet Morphology Comment CLUMPED (NORMAL) Carbon Dioxide Level 32.2 MEQ/L (21.0-32.0) Imaging Last Impressions Knee X-Ray 10/26/17 0000 Signed Impressions: Service Date/Time: Thursday, October 26, 2017 16:01 - CONCLUSION: 1. Osteoarthritic changes. No acute abnormality identified. Clinton Beatty MD Shoulder X-Ray 10/25/17 0000 Signed Impressions: Service Date/Time: Wednesday, October 25, 2017 09:57 - CONCLUSION: Intraoperative images. Fabricio Lyman MD PE at Discharge SKIN: Warm and dry. Dressing to right upper extremity dry and intact NECK: Trachea midline. No JVD. CARDIOVASCULAR: Regular rate and rhythm. RESPIRATORY: No accessory muscle use. Clear to auscultation. Breath sounds equal bilaterally. GASTROINTESTINAL: Abdomen soft, non-tender, nondistended. Hepatic and splenic margins not palpable. MUSCULOSKELETAL; RUE in sling, mild edema. RLE in knee immobilizer with anterior knee edema and abrasion. Hospital Course //Fracture of humerus, proximal, right, closed ICD Code: S42.201A - Unspecified fracture of upper end of right humerus, initial encounter for closed fracture Status: Acute Assessment and Plan 57-year-old female with history of ADHD and heart murmur presents s/p fall with right humeral fracture diagnosed at [facility], recommended outpatient f/up with ortho, however patient unable to establish follow up and presented to the ER with increasing pain //Right Humeral Fracture: s/p mechanical fall. -Right shoulder xray reviewed, shows comminuted displaced humeral fracture, patient is now s/p repair,Open reduction to fixation right proximal humerus, open repair right rotator cuff tear on 10/[address] Alvarez -Ortho has cleared patient for discharge once pain is controlled. -Cont PT/OT -5/3 changed pain medication to percocet. Cont IV Dilaudid prn breakthrough pain = Discharge home with oral pain meds. //Elevated Blood Glucose, resolved //Prediabetes. -HgbA1c 5.8 -Was likely secondary to stress. Patient is prediabetic and will need to follow with primary care. //Normocytic Anemia: Hgb 10.5, no previously labs to compare. -Iron 42, start ferrous sulfate 325 daily -outpatient f/up. Patient instructed to follow-up with primary care. Patient conveys understanding. //Right knee pain -Knee xray ordered, reviewed and shows osteoarthritic changes -Patient can follow up outpatient with ortho if pain worsens //DVT Prophylaxis: teds/SCDs to LLE Discharge Planning Discharge home. With home health. Pt Condition on Discharge: Good Discharge Disposition: Disch w/ Home Health Serv Discharge Time: > 30 minutes Discharge Instructions DIET: Follow Instructions for: As Tolerated, No Restrictions Activities you can perform: Weight Bearing as Annie Other Activity Instructions: Please follow orthopedics instructions Follow up Referrals: Appointment for Follow Up @ [facility] with [facility] - 2 Weeks @ [facility] with Dominic Alvarez MD PCP Follow-up - 1 Week New Medications: Calcium/Vitamin D (Oyster Shell 250 mg + Vit D Tb) 250 Mg Calcium (625 Mg)-125 Unit Tablet 250 MG PO TID for bone health for 30 Days, TAB Cholecalciferol (Gnp Vitamin D3 Extra Stre) 1,000 Unit Tab 1000 UNITS PO DAILY for vitamin for 30 Days, TAB Ferrous Sulfate (Ferosul) 325 Mg (65 Mg Iron) Tablet 325 MG PO DAILY for anemia for 30 Days, TAB Changed Medications: Oxycodone-Acetaminophen (Percocet) 10-325 mg Tab 1 TAB PO Q4HR PRN for PAIN, #60 TAB 0 Refills (Changed from: Q6H) Continued Medications: Esomeprazole DR (Nexium) 40 Mg Capdr 40 MG PO DAILY, CAP 0 Refills Suman Diaz MD October 28, 2017 15:10
== END 2017-10-28 14:09 | disposition home or self-care (01) ==
LOC: NEPK 14:03 → NEDA 16:51 → NEPFCDU 19:33 → N06B 10-25 08:19 → N06A 10-25 13:05
PROVIDERS: ADMIT Internal Medicine; ATTEND Internal Medicine
DX: S42.291A Other displaced fracture of upper end of right humerus, initial encounter for closed fracture (principal); M75.101 Unspecified rotator cuff tear or rupture of right shoulder, not specified as traumatic; S80.01XA Contusion of right knee, initial encounter; R20.0 Anesthesia of skin; W01.0XXA Fall on same level from slipping, tripping and stumbling without subsequent striking against object, initial encounter; Y92.89 Other specified places as the place of occurrence of the external cause; R73.03 Prediabetes; R73.9 Hyperglycemia, unspecified; D64.9 Anemia, unspecified; F90.9 Attention-deficit hyperactivity disorder, unspecified type; R01.1 Cardiac murmur, unspecified
CPT/HCPCS: 01630; 23615; 64415; 73030; 73564; 76000; 80048; 82306; 82607; 82728; 82746; 83036; 83540; 83550; 85025; 85610; 85730; 93005; 96372; 96374; 96375; 96376; 97110; 97116; 97163; 97167; 97535; 99285; C1713; G0378; G8987; G8988; J0131; J1100; J1170; J1580; J1885; J2250; J2370; J2405; J2710; J3010; J3370; J7050; J7120; J8501